=== PATIENT | male | born 1975 | race Caucasian/White ===

== ENCOUNTER → 2019-11-26 | Outpatient (CLI) | payer OTHER ==
[~2019-11-26] VITALS: Ht 175.3 cm; Wt 84.7 kg
[~2019-11-26] MED LIST: CYMBALTA20 MG PO; DOLOPHINE HCL5 MG PO; METHADONE HCL5 MG PO; NEURONTIN 300300 M1 PO; TRAZODONE HCL100 MG PO
[2019-11-26 13:23] VITALS: BP 123/77
--- NOTE | 2019-11-26 13:43 | NUR ---
Pain Clinic Assessment: 1. History of Osteoarthritis: Not Applicable History of Rheumatoid Arthritis: Not Applicable 2. Height: 5 ft. 9 in. 175.3 cm. Weight: 186.8 lb. oz. 84.732 kg. Patient's BMI: 27.6 3. Vital Signs: BP: 123/77 Pulse: 108 Resp: 14 Temp: 02 Sat: 100 ECG Mon: 4. Pain Intensity: 5 AVG 9 WORST 5. Fall Risk: Dizziness: Y Needs help standing or walking: N Fallen in the last 3 months: N Fall risk comments: 6. Patient on Blood Thinner: None 7. History of Hypertension: N 8. Opioid Therapy greater than 6 weeks: Y Opiate Contract Signed: 06/01/16 9. Risk Assessment Tool Provided: Opioid Risk Tool 10. Functional Assessment Tool: 11. Recreational Drug Use: Never Drug Type: Tobacco Use: Never Smoker Tobacco Type: Amount or Packs/day: How Many Years: Alcohol Use: No Frequency: Quant:
--- NOTE | 2019-11-28 16:17 | HPC ---
[facility] [place] [address] PAIN MANAGEMENT CONSULTATION Name: SHEILA FULTON [id number] Admission: 11/26/19 Attend Phys: Bhavana Bianchi Discharge: Date of : 79 Report #: [id number] THIS REPORT FOR: cc: Salomón Appiah MD, Timothy J. MD Hocker,Bhavana BUTTS ~ DATE OF SERVICE: 11/26/2019 CHIEF COMPLAINT: Chronic intractable headache. HISTORY OF PRESENT ILLNESS: This is a 44-year-old gentleman who returns to the pain clinic today for refill of his medications that he uses to help treat his ongoing chronic headaches as a result of his intrathecal pressure issues. He has a peritoneal shunt that was to be readjusted in October, but due to the coronavirus it has been pushed back to December. He reports some days, his pain is a 9/10, but he averages a 5/10. He denies any problems with constipation or daytime sleepiness. He feels that the methadone has been very beneficial in helping him continue to be as active as able. He feels that sometimes if he overdoes his activity he does have increased headaches and therefore he does need to rest and lay down. Today he is requesting refills of his methadone and gabapentin. ALLERGIES: ANTIHISTAMINES. CURRENT LIST OF MEDICATIONS: Methadone 5 mg t.i.d., gabapentin 300 mg t.i.d., trazodone 100 mg at bedtime, Cymbalta 20 mg daily. PQRS: 1. He denies any arthritic changes. 2. Height is 5 feet 9 inches, weight is 186, BMI is 27. 3. Vital signs 123/77, pulse is 108, respirations 14, oxygen sat is 100. 4. Pain score is 5-9 depending on the day. 5. Complains of dizziness and is not needing any walking assistance and has not fallen in the last 3 months. 6. The patient is not on any blood thinners or medicine for hypertension. Opioid therapy is greater than 6 weeks; therefore, an opioid signed contract is on the chart. Risk assessment tool is low. Functional assessment is 38/70. 7. Recreational drug use, he denies. He is not a smoker and does not drink alcohol. According to the prescription monitoring system, the patient is filling appropriately for his medications in a timely fashion. He is due to fill those medicines today. According to the CDC guidelines, his morphine mEq is 45 MME per day. There is a recent drug screen [place] [address] PAIN MANAGEMENT CONSULTATION Name: FULTONSHEILA JR Room #: REG [facility] Josh#: [id number] Admission: 11/26/19 Attend Phys: Bhavana Bianchi Discharge: Date of : 79 Report #: [id number] PHYSICAL EXAMINATION: GENERAL: This is alert and orientated gentleman who appears his stated age, placing his current pain score from 5 to 9, slightly upbeat. HEENT: Normocephalic, atraumatic. Pupils equal, round and reactive to light. He has a well-healed surgical scar in his calvarium bilaterally. EXTREMITIES: No clubbing, no cyanosis, no edema. He has a normal gait. We reviewed the fact that opiate medications are being used to provide analgesia adequate to support activities of daily living, not attempting to achieve a specific pain score on the 0-10 Visual Analog Scale. The current opiate medications are providing sufficient analgesia to allow the patient to participate in activities of daily living. The patient is not exhibiting any aberrant behavior suggestive of drug diversion. The patient is not having any adverse reactions to medications. The patient is not suffering from daytime somnolence or mental acuity changes. The patient is managing opiate-induced constipation with appropriate [id number] agents and dietary considerations. The patient was counseled on concern for caution with operating a motor vehicle while using opiate medications. PLAN: 1. We discussed treatment options with the patient today. The patient is here for refill of his methadone 5 mg 3 times a day. At times, he takes 7.5 mg and other times he will take 5 mg 3 times a day, but no more than 3 tablets in a 24-hour period. He finds this very beneficial in controlling his pain. Today, we will have Dr. Jordan Richardson refill electronically his methadone for 3 months, #90 each month. He will also send gabapentin 300 mg #120 with 2 additional refills. 2. I did discuss the COVID virus with the patient and the possible need to decrease his medicines for potential break in our supply chain. We are hopeful that this will not happen, but if he is having a good decrease pain day, we encouraged him to take less medicine to have a small supply at home in case his pharmacy was not able to fill his medicine in a timely fashion. The patient verbalizes understanding. I also explained to him that the [place], [place], has allowed opioids to be filled at 15-day intervals to have a supply at home as well. The patient reminded he is not to take more medicine. This is in case there was a disruption of the supply chain. 3. The patient is seen today in collaboration with Dr. Jordan Richardson. The patient will return in 3 months. <ELECTRONICALLY SIGNED> By: Bhavana Bianchi 11/28/19 [id number] [id number] Bhavana tamayo
== END ==
LOC: PAIN 13:08
DX: R51 Headache (principal); F11.20 Opioid dependence, uncomplicated